=== PATIENT | female | born 1955 | race Caucasian/White ===

== ENCOUNTER 2023-11-27 14:00 | Emergency (ER) | payer OTHER, SELFPAY ==
--- NOTE | 2023-11-27 14:16 | ED.URI ---
HPI - URI/Sore Throat General Chief Complaint: Ear Stated Complaint: Right Ear Irritation Time Seen by Provider: 11/27/23 14:32 Source: patient, RN notes reviewed and old records reviewed Mode of arrival: ambulatory Limitations: no limitations History of Present Illness HPI Narrative: 68-year-old female presents to the [facility] with of right ear pain for 3 weeks. Contacted primary, was called and an ear drop. Did not see her primary Related Data Home Medications Medication Instructions Recorded Confirmed esomeprazole magnesium 40 mg mg 11/27/23 capsule,delayed release meloxicam 15 mg tablet mg 11/27/23 pitavastatin calcium 2 mg tablet mg 11/27/23 semaglutide 0.25 mg or 0.5 mg (2 mg subcut 11/27/23 mg/3 mL) subcutaneous pen injector (Oligasisempic) Allergies Allergy/AdvReac Type Severity Reaction Status Date / Time No Known Allergies Allergy Verified 11/27/23 14:40 Review of Systems Review of Systems: All systems reviewed & are unremarkable except as noted in HPI and below Constitutional: Constitutional: Reports no additional constitutional complaints Eyes: Eyes: Reports no additional eye complaints ENT: Reports as per HPI and Reports otalgia (Right ear) Cardiovascular: Cardiovascular: Reports no additional cardiovascular complaints, Denies chest pain and Denies dyspnea Respiratory: Respiratory: Reports no additional respiratory complaints, Denies chest congestion, Denies cough and Denies dyspnea Gastrointestinal: Gastrointestinal: Reports no additional gastrointestinal complaints, Denies abdominal pain, Denies nausea and Denies vomiting Musculoskeletal: Musculoskeletal: Reports no additional musculoskeletal complaints Integumentary/Breasts: Skin/Breast: Reports system reviewed and no additional complaints, except as docu Neurologic: Reports system reviewed and no additional complaints, except as documented Psychiatric: Psychiatric: Reports no additional psychiatric complaints Allergic/Immunologic: Allergic/Immunologic: Reports no additional allergic/immunologic complaints PMFSH Comments At the time of my signature, I reviewed and agree with the nursing past medical, surgical, social, and family history. There is no relevant family history pertinent to the patient complaint. Exam Const: General: cooperative, healthy appearing, comfortable, no acute distress, well developed, alert and well nourished Nutritional Appearance: well nourished Orientation/consciousness: patient oriented x3 Limitations: no limitations HENMT: Head: normal to inspection Ears: hearing grossly normal bilaterally, external ears normal, TM normal on the left, EAC's normal, mastoids normal, no periauricular adenopathy and TM abnormal bulging on the right, erythematous on the right and with loss of landmarks on the right Face/Nose/Sinus: Normal external nose present, Normal nares present, Normal nasal mucous membranes and turbinates present, normal facial exam and face symmetric Face and sinus: normal facial exam and face symmetric Mouth: Yes Normal oral and palatal mucosa present, Yes lip normal and Yes tongue normal Throat: posterior oropharynx normal, uvula midline and uvula not displaced Eyes: General: appearance normal, both eyes and all related structures Alignment and Position: alignment normal Periorbital: periorbital findings normal Pupils: Equal, round and reactive pupils present EOM: EOMs intact bilaterally Neck: Neck: normal visual inspection, full ROM, no lymphadenopathy and no meningeal signs Chest: Chest palpation & inspection: normal inspection of the chest Resp: Effort & Inspection: normal respiratory effort and able to speak in complete sentences Auscultation: clear to auscultation bilaterally, no crackles, no rales, no rhonchi and no wheezes Cardio: Rate: regular rate Rhythm: regular rhythm Skin: General skin exam: normal color and no rashes or lesions noted Lesions: no lesions Rashes: no rashes
[2023-11-27 14:18] VITALS: BP 164/69; PULSE 61; RESP 19; TEMP 36.9; O2SAT 98
== END 2023-11-27 14:52 | disposition home or self-care (01) ==
PROVIDERS: Emergency Provider Nurse Practitioner; PCP Family Medicine
DX: H66.91 Otitis media, unspecified, right ear (principal); E78.00 Pure hypercholesterolemia, unspecified; K21.9 Gastro-esophageal reflux disease without esophagitis; E11.9 Type 2 diabetes mellitus without complications; M19.90 Unspecified osteoarthritis, unspecified site
CPT/HCPCS: 99203; G0463